=== PATIENT | female | born 1995 | race Caucasian/White ===

== ENCOUNTER 2022-01-15 19:33 | Emergency (ER) | payer MEDICAID, SELFPAY ==
[2022-01-15 19:46] VITALS: BP 115/78; PULSE 101; RESP 16; TEMP 37.1; O2SAT 100
--- NOTE | 2022-01-15 20:02 | ED.GENADUL_ITS ---
Discharge Plan Disposition Patient Disposition: HOME Condition: Good Discharge Details Clinical Impression: UTI (urinary tract infection), Acute hypokalemia Primary Care Provider: Unknown,Unknown ED Provider: Russ Roman Home Meds and New Rx's Prescriptions: New fosfomycin tromethamine 3 gram packet 3 g PO ONCE Qty: 1 0RF Discharge Instructions Instructions: Urinary Tract Infection in Women (ED), Hypokalemia (ED) Additional Instructions: At this time you have a urinary tract infection that is likely the cause of your current symptoms. Please drink plenty of fluids, cranberry juice, and take Tylenol as needed for pain. It is imperative that you follow-up in the next 24 to 36 hours with your primary care provider/OB doctor for reassessment. At 72 hours (Thursday afternoon) please take the repeat fosfomycin dose. If you notice any worsening of your symptoms, or any new symptoms such as vomiting, diarrhea, fever, chills, shortness of breath, chest pain, numbness, weakness, or fainting , please return immediately to the emergency department for reevaluation. Please follow up with your primary care provider as soon as possible for reassessment and reevaluation. As always, it was a pleasure participating in your medical care today. Medical Decision Making 26-year-old female with a past medical history of a penicillin allergy, who is currently 18 weeks presents today for evaluation of left-sided abdominal pressure, increased urinary frequency. Patient has taken Tylenol without significant relief. She denies fever or chills. She has had a UTI in the past and states that this feels similar. She has had a kidney stone in the past and states that this does not feel as bad as that did. She denies any vaginal discharge, fever, chills, chest pain, shortness of breath, vomiting or diarrhea. No other complaints at this time. No other modifying factors. Physical exam demonstrates minimal left-sided CVA tenderness, no pain or McBurney's point, no abdominal tenderness. No guarding or rebound. No vaginal discharge. Differential sinus or urinary tract infection, less likely kidney stone. Due to the patient's status, we will gently rehydrate, evaluate for UTI Will monitor closely and reassess 9:22 PM Laboratory work-up has returned, patient does have mild white count at 14, no bandemia. Lactate is normal though. Electrolytes stable aside for slight low potassium at 3.1. Will give oral potassium. Creatinine stable, no evidence of kidney injury. Transaminases unremarkable. Urinalysis shows positive leuk esterase, negative nitrates, notably elevated WBCs at 20 to 50. Symptoms appear clinically inconsistent with kidney stone at this time. Repeat exam continues to show no abdominal tenderness. CVA tenderness notably resolved after fluids. Patient heart rate is normal, no fever. Symptoms inconsistent with significant pyelonephritis clinically at this time. Symptoms are concerning for urinary tract infection. No clinical evidence of tubo-ovarian abscess, appendicitis, colitis. No indication for emergent imaging currently. Patient states that her allergy to penicillins causes throat swelling and hives. Fluoroquinolones would not be appropriate secondary to the patient status. Bactrim would not be ideal secondary to the status. I do feel that fosfomycin would be a good option in this clinical scenario. We will give a full 3 g doses this time. Recommend close follow-up with OB in the next 24 hours for reassessment. Discussed red flags which to return. I have extensively reviewed the treatment plan and discharge instructions with the patient and their family. I have addressed all patient concerns at this time. The patient and family was made aware of what symptoms to monitor for that would warrant a return to the emergency department. Discussed the plan with the patient and family, they dem onstrate verbal understanding and agreement with our assessment and plan at this time. The documentation in this chart was dictated using [employer] dictation software. Please excuse any dictation errors. HPI General Date/Time Provider Initiated Documentation: 01/15/22 19:50 . HPI Narrative: 26-year-old female with a past medical history of a penicillin allergy, who is currently 18 weeks presents today for evaluation of left-sided abdominal pressure, increased urinary frequency. Patient has taken Tylenol without significant relief. She denies fever or chills. She has had a UTI in the past and states that this feels similar. She has had a kidney stone in the past and states that this does not feel as bad as that did. She denies any vaginal discharge, fever, chills, chest pain, shortness of breath, vomiting or diarrhea. No other complaints at this time. No other modifying factors. Related Data Home Medications Medication Instructions Recorded Confirmed fosfomycin tromethamine 3 gram 3 g PO ONCE #1 ea 01/15/22 oral packet Previous Rx's Medication Instructions Recorded fosfomycin tromethamine 3 gram 3 g PO ONCE #1 ea 01/15/22 oral packet Allergies Allergy/AdvReac Type Severity Reaction Status Date / Time Penicillins Allergy Severe hives and Unverified 01/15/22 19:58 swelling all over amoxicillin Allergy Intermediate hives and Unverified 01/15/22 19:59 swelling all over General Stated Complaint: Urinary YUE: 3 Review of Systems All systems reviewed & are unremarkable except as noted in HPI and below PFSH All Active Problems (Updated 01/15/22 @ 21:09 by Russ Roman DO) UTI (urinary tract infection) (Acute) Acute hypokalemia (Acute) Social History Smoking/Tobacco Use Status: Current every day Smoking risk assessment performed?: Yes Drug use: Never Substance use type: does not use Do you feel safe at home: Yes Do you feel safe in your relationship?: Yes Exam Narrative Exam Narrative: 1.Const: Well-nourished, Well-developed, appearing stated age 2.Eyes: PERRL, no conjunctival injection, and symmetrical lids. 3.ENT: Atraumatic external nose and ears. Moist MM. Neck: Symmetric, trachea midline, No thyromegaly. 4.CVS: +S1/S2, No murmurs or gallops. Peripheral pulses 2+ and equal in all extremities. Brisk capillary refill in all extremities. 5.RESP: Unlabored respiratory effort. Clear to auscultation bilaterally. No wheezes rales or rhonchi 6.GI: Soft, Nontender/Nondistended, No hepatosplenomegaly. No guarding or rebound. No pain to McBurney's point, negative Snow sign. No right CVA tenderness. Negative obturator and psoas sign. Minimal left-sided CVA tenderness. No suprapubic tenderness 7.MSK: Normocephalic/Atraumatic, Extremities w/o deformity or ttp No cyanosis or clubbing, Normal movement of all extremities 8.Skin: Warm, Dry. No rashes or lesions. 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 Sensation grossly intact, no focal neurologic deficits. 10.Psych: (AAO) x3. Appropriate mood and affect Course Vital Signs Vital signs: Vital Signs Temperature 37.1 C 01/15/22 19:46 Pulse 101 H 01/15/22 19:46 Respiratory Rate 16 01/15/22 19:46 Blood Pressure 115/78 01/15/22 19:46 Pulse Oximetry 100 01/15/22 19:46 Temperature 37.1 C 01/15/22 19:46 Temperature Source Skin 01/15/22 19:46 Pulse 101 H 01/15/22 19:46 Respiratory Rate 16 01/15/22 19:46 Blood Pressure 115/78 01/15/22 19:46 Blood Pressure Position Sitting 01/15/22 19:46 Pulse Oximetry 100 01/15/22 19:46 Oxygen Delivery Method Room Air 01/15/22 19:46 Oxygen Flow Rate 0 01/15/22 19:46 Pain Level 8 01/15/22 19:46
[2022-01-15 20:08] LABS: Bilirubin Negative (Negative); Blood Trace-intact (Negative); Clarity Clear (Clear); Glucose Negative (Negative); Ketones Negative (Negative); Leukocyte Esterase Trace (Negative); Nitrite Negative (Negative); Specific Gravity >= 1.030 (1.005-1.025); Urobilinogen 0.2 EU/dL (Up TO 0.2); pH 6.5 (5-8)
[2022-01-15 20:15] LABS: Epithelial Cells Moderate HPF (Negative); WBC 20-50 HPF (0-5)
[2022-01-15 20:16] LABS: Bacteria Few HPF (Negative); C & S Indicated? Yes; Crystals Negative HPF (Negative); Mucus Trace (Negative); Other Cells Few Yeast (Negative)
[2022-01-15] MEDS: Normal Saline 1,000 ML 1000 ML IV (20:17)
[2022-01-15 20:22] LABS: Abs Immature Grans 0.06 10^3/uL (0.0-0.06); Absolute Basophil Count 0.03 10^3/uL (0.0-0.2); Absolute Eosinophil Count 0.06 10^3/uL (0.0-0.7); Absolute Monocyte Count 0.83 10^3/uL (0.1-0.8); Basophils % 0.2; Eosinophils % 0.4; HCT 32.6 % (36.0-46.0); HGB 10.8 g/dL (11.2-15.7); Immature Grans % 0.4; Lymphocytes % 18.9; MCH 29.8 pg (27.0-33.0); MCHC 33.1 % (32.0-36.0); MCV 89.8 fL (80-95); MPV 10.5 fL (8.0-11.0); Monocytes % 5.9; Neutrophils % 74.2; Nucleated RBC 0 %; Platelet Count 211 10^3/uL (130-400); RBC 3.63 10^6/uL (3.93-5.22); RDW 12.9 % (11.7-14.6); RDW-SD 42.5 fL; WBC 14.05 10^3/uL (4.4-10.8)
[2022-01-15 20:25] LABS: Absolute Lymphocyte Count 2.66 10^3/uL (1.2-3.4); Absolute Neutrophil Count 10.43 10^3/uL (1.2-6.7)
[2022-01-15 20:27] LABS: Lactate 0.8 mmol/L (0.6-1.4)
[2022-01-15] MEDS: Fosfomycin Tromethamine 3 GM PACKET PO (20:57)
[2022-01-15 20:58] VITALS: BP 128/77; PULSE 78; RESP 16; TEMP 36.7; O2SAT 98
[2022-01-15 21:03] LABS: ALT 15 U/L (14-59); AST 6 U/L (15-37); Albumin 3.1 g/dL (3.4-5.0); Alkaline Phosphatase 60 U/L (46-116); Anion Gap 10.8 mmol/L (3-11); BUN 7 mg/dL (7-18); Bilirubin, Total 0.1 mg/dL (0.2-1.0); CO2 25.2 mmol/L (21.0-32.0); CREATININE 0.5 mg/dL (0.55-1.02); Calcium 8.7 mg/dL (8.5-10.1); Chloride 103 mmol/L (98-107); Glucose 89 mg/dL (74-106); Potassium 3.1 mmol/L (3.5-5.1); Sodium 139 mmol/L (136-145); Total Protein 6.6 g/dL (6.4-8.2)
[2022-01-15] MEDS: Potassium Chloride 20 MEQ TABCR 40 MEQ PO (21:14)
== END 2022-01-15 21:18 | disposition home or self-care (01) ==
PROVIDERS: Emergency Provider Student in an Organized Health Care Education/Training Program
DX: O23.42 Unspecified infection of urinary tract in pregnancy, second trimester (principal); N39.0 Urinary tract infection, site not specified; B96.89 Other specified bacterial agents as the cause of diseases classified elsewhere; Z3A.18 18 weeks gestation of pregnancy; E87.6 Hypokalemia
CPT/HCPCS: 36415; 80053; 96360; 99284; 81003; 81015; 83605; 85025; 87086; J3490